=== PATIENT | male | born 1960 | race Caucasian/White ===

== ENCOUNTER 2016-08-12 18:37 | Inpatient (IN) | payer OTHER ==
[~2016-08-12] VITALS: Ht 170.2 cm; Wt 78.6 kg
[2016-08-12 18:41] VITALS: BP 156/86; PULSE 74; RESP 20; O2SAT 99
--- NOTE | 2016-08-12 19:21 | ED.REPORT ---
HPI-Extremity Problem Lower Date of Service Aug 12, 2016 ED Provider: Da Watkins DO A 55 year old male with no pertinent medical history is brought to the ED via EMS due to left ankle pain. The pt was in a hay loft today when he stepped through a board. He experienced immediate pain in his left ankle, and paramedics noted left ankle deformity upon arrival. The pt denies other trauma. He last ate at 15:00 today. Nursing Notes Stated Complaint: FALL W/LEFT ANKLE DEFORMITY Chief Complaint: Multiple Trauma/Fall Nursing Notes Reviewed: Yes Allergies: Coded Allergies: No Known Allergies (Unverified , 08/12/16) General Time Seen by MD: 19:21 Chief Complaint Ankle injury left Hx Obtained From: Patient, EMS Arrived By: Ambulance Onset Occurred: 1 - 4 hours ago Symptom Duration: Since onset Recent Healthcare: No recent doctor visit, No recent hospitalization Similar Sx Previous: No Past Medical History Past Medical History none reported Past Surgical History none reported Smoking History Never Smoker Social History Alcohol Use: Denies alcohol use Drug Use: Denies drug use Other Social History: Good social support, Ambulatory Status Independent Review of Systems Review of Systems Note: left ankle deformity Constitutional: Denies: Fever Musculoskeletal: Reports: Extremity pain, Denies: Back pain, Neck pain Skin: Denies Rash Neurologic: Denies: Headache Complete sys rev & neg: except as marked. Respiratory: Denies: Non-productive cough, Shortness of breath Cardiovascular: Denies: Chest pain GI: Denies: Abdominal pain Physical Exam Initial Vital Signs Vital Signs (First) Date Time Temp Pulse Resp B/P Pulse Ox O2 Delivery O2 Flow Rate FiO2 08/12/16 18:41 36.9 74 20 156/86 99 Room Air Initial VS: Reviewed Lower Extremity / Pelvis / MS: Neurologic intact, Vascular intact Ankle / Foot: Neurologic intact, Vascular intact unstable and deformed left ankle strong pulses sensation intact over entire foot General/Constitutional: Awake, Alert Respiratory / Chest: Atraumatic, Breath sounds NL, Breath sounds = bilat, No respiratory distress Cardiovascular: Heart rate NL, Regular rhythm, Heart sounds NL Skin: Atraumatic, Color NL, No rash, Warm, Dry Neurologic: Oriented X3, Speech NL, No motor deficits, No sensory deficits Head / Eyes: Atraumatic, Normocephalic, PERRL, EOMI ENT: Atraumatic, Airway patent, Mucous membranes moist Neck: Atraumatic, Supple, Full range of motion Abdomen: Atraumatic Back: Atraumatic, Full range of motion Upper Extremity / MS: Atraumatic, Full range of motion Psychiatric: Affect NL, Mood NL Interpretation & Diagnostics Interpretation & Diagnostics: Left Ankle CT: IMPRESSION: Comminuted fractures of the distal tibia and fibula as detailed above Nondisplaced intra-articular fracture of the medial malleolus. Dictated by: Todd Lay M.D. on 08/12/2016 at 20:14 Approved by: Todd Lay M.D. on 08/12/2016 at 20:18 Lab Results Interpretation Result Diagram: 08/12/16 1942 08/12/16 1942 Test 08/12/16 19:42 White Blood Count 17.2th/mm3 (3.8-10.1) Red Blood Count 5.01mil/mm3 (4.40-5.80) Hemoglobin 15.2g/dL (13.8-17.2) Hematocrit 43.3% (41.0-50.0) Mean Corpuscular Volume 86.4fL (81-100) Mean Corpuscular Hemoglobin 30.3pg (27.0-35.0) Mean Corpuscular Hemoglobin Concent 35.1% (32.0-37.0) Red Cell Distribution Width 12.5% (12.3-15.4) Platelet Count 282bil/L (150-400) Neutrophils (%) (Auto) 85.6% (40-74) Lymphocytes (%) (Auto) 6.2% (14-46) Monocytes (%) (Auto) 6.8% (4-12) Eosinophils (%) (Auto) 0.6% (0-5) Basophils (%) (Auto) 0.2% (0-3) Prothrombin Time 10.1sec (8.1-12.5) Prothromb Time International Ratio 0.95ratio Activated Partial Thromboplast Time 24.3sec (22.8-33.0) Sodium Level 140mEq/L (134-144) Potassium Level 4.4mEq/L (3.5-5.2) Chloride Level 104mEq/L (97-108) Carbon Dioxide Level 21mmol/L (18-29) Blood Urea Nitrogen 19mg/dL (6-24) Creatinine 0.91mg/dL (0.76-1.27) Estimat Glomerular Filtration Rate 93mL/min (>59) Glucose Level 118mg/dL (60-99) Calcium Level 8.6mg/dL (8.5-10.1) Total Bilirubin 0.3mg/dL (0.0-1.2) Aspartate Amino Transf (AST/SGOT) 20U/L (0-50) Alanine Aminotransferase (ALT/SGPT) 15U/L (0-44) Alkaline Phosphatase 51U/L (25-150) Total Protein 6.5g/dL (6.4-8.4) Albumin 4.0g/dL (3.4-5.0) Hold Fisher Top Tube Received (Received) Pulse Oximetry Interpretation Pulse Oximetry Interpretation: 99% on room air Pulse Oximetry: Pulse Ox normal X-Ray Interpretation Xray Interpretation: IMPRESSION: Intra-articular comminuted fracture of the distal tibia with intra-articular extension. Minimal articular surface incongruity. Overriding, displaced distal fibular diaphyseal fracture Dictated by: Todd Lay M.D. on 08/12/2016 at 19:47 Approved by: Todd Lay M.D. on 08/12/2016 at 19:49 X-Ray Ordered: Ankle left Interpretation / Wet Read by: Interpret - Radiologist Procedures Splint Application - Fx Mgt Time: 19:37 Procedure Performed by: ED physician, Pile Driving Superintendent Precise Anatomic Location: left ankle Type of Immobilization: Ortho-glass, Posterior short leg Definitive Fracture Care: Pain control, Performed by pa Post-Procedure / Complications: Cap refill normal, Post splint vascular nl, Post splint neuro nl, Condition improved, Tolerated procedure well, Patient stable Re-Eval/Medical Decision Source of Hx: Old records Re-Evaluation/Progress #1: Time of Eval: 19:28 Re-Evaluation/Progress Note: Pt rechecked, who is stable. He is informed of his radiology results and orthopedic consult. The plan for possible admission is discussed. Re-Evaluation/Progress #2: Time of Eval: 19:37 Re-Evaluation/Progress Note: Pt rechecked and splint is applied. Pt is informed of the plan for admission. The pt understands and agrees with the plan. All questions are addressed at this time. Consultation #1: Referral / Consult Name: Alek Dyson DO Consulted With: Orthopedic Call Returned at: 19:27 Real Estate Site Analyst: Will see patient, Agrees with eval, Agrees with plan Note: Spoke with Dr. Dyson, orthopedic surgeon, regarding pt's case. Dr. Dyson agrees to review pt's radiology. Consultation #2: Referral / Consult Name: Alek Dyson DO Consulted With: Orthopedic Call Returned at: 19:32 Note: Spoke with Dr. Dyson, who recommends admission and will see the pt tomorrow. Consultation #3: Referral / Consult Name: Hector Poole MD Consulted With: Hospitalist Call Returned at: 20:20 Real Estate Site Analyst: Agrees with eval, Agrees with plan, Accepts admit Note: Spoke with Dr. Poole, hospitalist, regarding pt's case. Dr. Poole agrees with the evaluation and agrees to admit the pt. Counseled Regarding: Diagnosis, Lab results, Need for admission Discharge & Departure Impression: Primary Impression: Closed left ankle fracture Encounter type: initial encounter Qualified Code: S82.892A - Other fracture of left lower leg, initial encounter for closed fracture Additional Impressions: Comminuted fracture Acute fracture Disposition: ADMITTED TO HOSPITAL Discharge Condition All VS Reviewed: Yes Condition: Stable Referrals: Jeff Bustos PA-C (PCP) Karlos Attestation Portions of this note were transcribed by Mildred Salguero. I, Dr. Watkins personally performed the history, physical exam and medical decision-making; I reviewed and confirmed the accuracy of the information in the transcribed note. Signed by: Karlos Nguyen, 08/12/2016 and 2328. copies to: Jeff Bustos PA-C, Todd P DO Aug 12, 2016 19:21 MILDRED SALGUERO Aug 12, 2016 19:23
[2016-08-12] MEDS: Ondansetron 2 mg/mL 2 mL Inj IVPUSH PRN (19:30)
[2016-08-12] MEDS: HYDROmorphone 0.5 mg/0.5 mL iSecure Syringe IVPUSH PRN ×4 (19:32→22:14)
--- NOTE | 2016-08-12 19:50 | DRSVH ---
PROCEDURE: X-RAY LEFT ANKLE, MINIMUM THREE VIEWS ([id number]) INDICATIONS: deformed TECHNIQUE: 3 views of the ankle were acquired. COMPARISON: None. FINDINGS: Bones: Moderately displaced distal tibial diaphyseal fracture with large butterfly fragment. There is medial displacement of the distal tibial fragment. Fracture line appears to extend to the medial mal leolus, with intra-articular extension to the tibiotalar joint where there is minimal articular surfa ce incongruity. Severely displaced and overriding distal fibular fracture, with medial displacement of the distal fra gment measuring one shaft width. Multiple chronic ossicles adjacent to the tip of the medial malleolu s Soft tissues: No tibiotalar joint effusion. Achilles tendon appears normal. IMPRESSION: Intra-articular comminuted fracture of the distal tibia with intra-articular extension. M inimal articular surface incongruity. Overriding, displaced distal fibular diaphyseal fracture Dictated by: Todd Lay M.D. on 08/12/2016 at 19:47 Approved by: Todd Lay M.D. on 08/12/2016 at 19:49
[2016-08-12 19:52] LABS: BASOPHILS % (AUTO) 0.2 % (0-3); EOSINOPHILS % (AUTO) 0.6 % (0-5); MONOCYTES % (AUTO) 6.8 % (4-12); Mean Corpuscular Hemoglobin 30.3 pg (27.0-35.0); Mean Corpuscular Volume 86.4 fL (81-100); NEUTROPHILS % (AUTO) 85.6 % (40-74); Platelet Count 282 bil/L (150-400)
--- NOTE | 2016-08-12 20:19 | DRSVH ---
PROCEDURE: CT ANKLE LEFT W/O CONTRAST ([id number]) INDICATIONS: trauma TECHNIQUE: Noncontrast 3-mm axial sections acquired from the distal tibial shaft to the talar dome, with coronal and sagittal reformats. For radiation dose reduction, the following was used: automated exposure c ontrol, adjustment of mA and/or kV according to patient size. COMPARISON: None. FINDINGS: Image quality: Excellent. Bones: Comminuted fracture of the distal tibial diaphysis with large butterfly fragment is seen. Ther e is medial displacement of the distal tibial fragment. There is also a stellate nondisplaced hairlin e fracture through the medial malleolus, with extension into the tibiotalar joint, in multiple locati ons, although minimal articular surface incongruity. Chronic appearing subcentimeter multiple ossicle s adjacent to the tip of the medial malleolus presumably from prior trauma. Overriding, impacted comm inuted distal fibular fracture with medial displacement of the distal fragment. The talar dome and re maining visualized hindfoot appear grossly intact. Soft tissues: Diffuse subcutaneous swelling and edema. The visualized tendons appear grossly intact IMPRESSION: Comminuted fractures of the distal tibia and fibula as detailed above Nondisplaced intra-articular fracture of the medial malleolus. Dictated by: Todd Lay M.D. on 08/12/2016 at 20:14 Approved by: Todd Lay M.D. on 08/12/2016 at 20:18
[2016-08-12] MEDS ORDERED: Alum-Mag Hydrox-Simeth 30 mL Suspension PO PRN (20:25)
[2016-08-12] MEDS ORDERED: Ondansetron 2 mg/mL 2 mL Inj IVPUSH PRN (20:25)
[2016-08-12] MEDS ORDERED: Polyethylene Glycol (PEG) 17 Gm Powder PO PRN (20:25)
[2016-08-12 20:42] LABS: INR 0.95 ratio
[2016-08-12 21:27] VITALS: BP 150/70; PULSE 74; RESP 16; O2SAT 96
--- NOTE | 2016-08-12 22:02 | PCM.HPMED ---
Subjective Date of Service Aug 12, 2016 Primary Provider: Admitting Physician: Hector Poole MD Primary Care Physician: Jeff Bustos PA-C Attending Physician: Hector Poole MD Chief Complaint: Left ankle pain History of Present Illness: Patient is a 55 y.o. M with past medical history of neurofibromatosis, no PCP for years. 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 Patient stated he felt immediate sharp pain rated 10/10 in his left ankle, we was unable to bear weight but crawled to his house to call for help. Patient noted that he took his boot off and saw that his ankle was deviated to the outside. Patient denies trauma to his head or other body part, denies loss of consciousness, numbness and tingling of left lower extremity and left foot. Patient denies chest pain, fever, chills, nausea, vomiting, diarrhea, headache, change in vision. In ED X- Ray showed commuted and displace fracture of left tibia and fibula, fracture was reduced and splinted in ED. Review of Systems: Comprehensive review of systems conducted and was negative except for the pertinent positives listed above. Allergies Coded Allergies: No Known Allergies (Unverified , 08/12/16) Home Medications None reported PMH Neurofibromatosis . Surgical History None reported Family History HTN DM neurofibromatosis Social History Hx Alcohol Use: No Hx Substance Use: No Hx Tobacco Use: No Smoking Status: Never Smoker Exam Vital Signs Vital Sign - Last Date Time Temp Pulse Resp B/P Pulse Ox O2 Delivery O2 Flow Rate FiO2 08/12/16 21:27 36.8 74 16 150/70 96 Room Air Exam General: Alert, Oriented X3, Cooperative, No Acute Distress Head: Normocephalic, atraumatic. External ears normal. Multiple neurofibromas of face and nect Eyes: PERRLA, EOMI. Anicteric sclerae. Mouth: Mouth Normal, Mucous Membranes Moist/[place] Neck: Neck supple with full range of motion. Chest & Lungs: Clear to auscultation bilaterally with no crackles, wheezes, or rhonchi. Cardiovascular: Regular Rate/Rhythm, Normal S1, Normal S2, No Murmurs/Rubs/ Gallops Abdomen: Non-tender, Non-distended, No masses, Normoactive bowel tones, Soft Musculoskeletal: Normal Range of Motion of arms bilaterally and right lower extremity, left lower extremity splinted in short leg splint Extremities: No cyanosis/clubbing/edema bilaterally/ Left lower extremity in short leg splint, neurovasularly intact Neurological: Grossly Neurologically Intact, Cranial Nerves 2-12 Intact, Normal Speech, Strength Normal 4/4, Sensation Intact, Cerebellar Function nl Finger-Nose Lab and Diagnostics Result Diagram: 08/12/16194108/12/161941 X-Rays, CTs and MRIs Left Ankle X-Ray IMPRESSION: Intra-articular comminuted fracture of the distal tibia with intra- articular extension. Minimal articular surface incongruity. Overriding, displaced distal fibular diaphyseal fracture Dictated by: Todd Lay M.D. on 08/12/2016 at 19:47 Approved by: Todd Lay M.D. on 08/12/2016 at 19:[address] IMPRESSION: Comminuted fractures of the distal tibia and fibula as detailed above Nondisplaced intra-articular fracture of the medial malleolus. Dictated by: Todd Lay M.D. on 08/12/2016 at 20:14 Approved by: Todd Lay M.D. on 08/12/2016 at 20:18 Assessment & Plan Patient is a 55 y.o. M with past medical history of neurofibromatosis, no PCP for years. Admitted for treatment of left distal commuted closed, displaced fracture of tibia and fibula. 1. left distal commuted closed, displaced fracture of tibia and fibula - Xray and CT of left ankle confirm presence of fracture of tibia and fibula - Short leg splint in place, LLE neurovascularly intact - NPO at midnight - IV NS @ 100 mls/hr - Hydrocodone 5-325 mg 1-2 tab PO Q4 for pain - Toradol 30 mg IV push Q8 PRN pain - Surgical consult obtained in ED, orthopedics will see patient tomorrow. - Check AM CBC, CMP, EKG prior to surgery Chronic conditions Neurofibromatosis, presumed stable CODE STATUS FULL CODE DVT prophylacix: SUB Q Heparin Patient is admitted under observation status with expected length of stay less than 2 midnights due to severity of presenting symptoms, risk of adverse event, and complexity of treatment plan. Pain Evaluation: Adequate Pain Control Resuscitation Status: CPR: Attempt Resuscitation Attending Statement The patient was seen and examined together with Dr. Goyal on 08/12 and I agree with the history, exam and plan as outlined in the note above. JOEL GOYAL DO Aug 12, 2016 22:02 Hector Poole MD Aug 13, 2016 00:18
[2016-08-12 22:05] VITALS: BP 148/84; PULSE 71; RESP 20; O2SAT 97
[2016-08-13] VITALS (14 sets, daily range): BP systolic 146–177; BP diastolic 71–112; PULSE 63–118; RESP 15–20; O2SAT 93–98
[2016-08-13] MEDS ORDERED: Heparin 5,000 Unit/mL Inj SUBQ SCH (00:30)
[2016-08-13] MEDS: HYDROcodone-APAP 5-325 mg Tablet PO PRN ×4 (01:08→13:46)
--- NOTE | 2016-08-13 05:56 | NUR ---
NOC/Admit PT admitted from ED around 2300 s/p L ankle fracture. He reportedly stepped in his barn and his foot went through some elias. L ankle has splint intact. +CMS to toes. Popliteal pulse noted. LLE kept on pillow. PT receiving pain meds with good relief. He is currently NPO with the likelihood of OR today. Admission complete. Voiding per urinal.
[2016-08-13 06:12] LABS: BASOPHILS % (AUTO) 0.3 % (0-3); EOSINOPHILS % (AUTO) 0.6 % (0-5); MONOCYTES % (AUTO) 10.2 % (4-12); Mean Corpuscular Hemoglobin 30.8 pg (27.0-35.0); Mean Corpuscular Volume 87.6 fL (81-100); NEUTROPHILS % (AUTO) 78.1 % (40-74); Platelet Count 241 bil/L (150-400)
--- NOTE | 2016-08-13 06:24 | PCM.PNMED ---
Subjective Date of Service Aug 13, 2016 Subjective Patient is seen and examined. He says that he has not gone to his PCP in a while. He denies any prior history of hypertension. He is curious if we could add a lipid panel labs. He states his pain is under good control. He denies history of diabetes. He does not take home medications. 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 States he had a lot of pain following the incident. He denies overnight fevers chills, recent weight loss weight gain. He denies GI symptoms. He denies numbness and tingling in the left lower extremity Exam Vital Signs Vital Sign - Last Date Time Temp Pulse Resp B/P Pulse Ox O2 Delivery O2 Flow Rate FiO2 08/13/16 05:48 65 08/13/16 05:47 36.5 18 152/81 97 Room Air Intake and Output 08/12/16 08/12/16 08/13/16 Cumulative From/Thru 15:00 23:00 07:00 08/12/16 18:41 - 08/13/16 06:04 Intake Total 0 ml 0 ml Output Total 725 ml 725 ml Balance -725 ml -725 ml Intake Oral 0 ml 0 ml Output Urine Total 725 ml 725 ml # Bowel Movements 0 0 Exam Gen.: No acute distress distress. Short stager HEENT: Several large sized papule-like skin tags are present throughout the body. Neck: Negative for JVD, trachea central Heart: Regular rate and rhythm no S3-S4 sounds Lungs: Clear to auscultation no crackles or wheezes Abdomen: Normal bowel sounds are present. Nontender nondistended Extremities: He is able to move his toes. Neuro: Negative for altered sensation, no focal deficits IVs and Medications IV Fluids D5 half normal saline 100 mL per hour Medications Reviewed: Medications were reviewed in detail Lab and Diagnostics Result Diagram: 08/13/1654408/12/161941 X-Rays, CTs and MRIs Left Ankle X-Ray IMPRESSION: Intra-articular comminuted fracture of the distal tibia with intra- articular extension. Minimal articular surface incongruity. Overriding, displaced distal fibular diaphyseal fracture Dictated by: Todd Lay M.D. on 08/12/2016 at 19:47 Approved by: Todd Lay M.D. on 08/12/2016 at 19:[address] IMPRESSION: Comminuted fractures of the distal tibia and fibula as detailed above Nondisplaced intra-articular fracture of the medial malleolus. Dictated by: Todd Lay M.D. on 08/12/2016 at 20:14 Approved by: Todd Lay M.D. on 08/12/2016 at 20:18 12-lead ECG Premature atrial complexes normal sinus rhythm Assessment & Plan Patient is a 55 y.o. M with past medical history of neurofibromatosis, no PCP for years. Admitted for treatment of left distal commuted closed, displaced fracture of tibia and fibula. 1. left distal commuted closed, displaced fracture of tibia and fibula - Xray and CT of left ankle confirm presence of fracture of tibia and fibula - Short leg splint in place, LLE neurovascularly intact - NPO at midnight - IV NS @ 100 mls/hr: Includes a changed to D5 half-normal saline - Hydrocodone 5-325 mg 1-2 tab PO Q4 for pain - Toradol 30 mg IV push Q8 PRN pain - Surgical consult obtained in ED, orthopedics will take the patient to OR today - Check AM CBC, CMP, EKG prior to surgery: These have been done and labs and EKG are verified Chronic conditions Neurofibromatosis, presumed stable CODE STATUS FULL CODE DVT prophylacix: SUB Q Heparin: Heparin is held prior to surgery Patient is admitted under inpatient status with expected length of stay > 2 midnights due to severity of presenting symptoms, risk of adverse event, and complexity of treatment plan. Pain Evaluation: Adequate Pain Control VTE Mechanical Devices: Intermittant Pneumatic CD Resuscitation Status: CPR: Attempt Resuscitation Nichole Prince DO Aug 13, 2016 06:24
[2016-08-13] MEDS ORDERED: Influenza (Adult) Vaccine 0.5 mL Syringe IM ONE (08:30)
[2016-08-13] MEDS ORDERED: Phenylephrine/NS 100 mCg/mL 10 mL Syringe IVPUSH ONE (09:39)
[2016-08-13] MEDS ORDERED: fentaNYL-PF 50 mCg/mL 2 mL Inj ONE ×2 (09:39→10:54)
[2016-08-13] MEDS ORDERED: EPHEDrine/NS 5 mg/mL 5 mL Syringe ONE (09:39)
[2016-08-13] MEDS ORDERED: Ondansetron 2 mg/mL 2 mL Inj ONE (09:39)
[2016-08-13] MEDS ORDERED: Dexamethasone 4 mg/mL Inj ONE (09:39)
[2016-08-13] MEDS ORDERED: Rocuronium 10 mg/mL 5 mL Inj ONE (09:39)
[2016-08-13] MEDS ORDERED: Propofol 10,000 mCg/mL 20 mL Inj ONE (09:39)
[2016-08-13] MEDS: Dextrose 5% 0.45% NaCl 1,000 ML IV SCH ×2 (12:11→21:05)
--- NOTE | 2016-08-13 14:13 | PCM.HPANE ---
Patient Data Date of Service: Aug 13, 2016 Surgeon Admitting Provider:Hector Poole MD Attending Provider:Hector Poole MD Primary Care Physician:Jeff Bustos PA-C Other Provider:Ashlyn Caban Anesthesia Reason for Visit Left Ankle Fracture LEFT ANKLE FRACTURE Ht/WT & BMI Height (Feet): 5 Height (Inches): 7.00 Weight (Kilograms): 78.600 Body Mass Index 27.20 Allergies Coded Allergies: No Known Allergies (Unverified , 08/12/16) Past Anesthesia History Anesthesia History: Denies:: Anesthesia Reactions Diabetes History Hx Diabetes?: No MRSA MRSA: No Medications No Active Prescriptions or Reported Meds History Hx of Heart Problems?: No Cardiovascular History: Denies:: Congestive Heart Failure Hypertension Hx of Respiratory Problem?: No Respiratory History: Denies:: Tuberculosis Other Resp Pertinent History: Hx lung nodules Hx Neurologic Problems?: No Hx of GI Problems?: No Hx of Problems?: No Male Hx: Denies:: Prostate Problems Scrotal Mass Testicular Surgery Musculoskeletal History: Positive for:: Musculoskeletal Trauma (Fall prior to admit with fx) Denies:: Back Injury Joint Replacement Hx of Psycho/Social Problems?: No Hx Surgeries?: Yes (skin graft on finger) Hx Any Other Health Problems?: Yes History Blood Transfusions: Positive for:: Accept Blood Products? Denies:: Blood Transfusions Hx Diabetes: No Hx Alcohol Use: NoHx Substance Use: No Smoking Status: Never Smoker Stop/Bang Treated for Sleep Apnea?: No Do You Have a CPAP Machine?: No S-Snoring: Do You Snore Loudly: No T-Tired: feel tired, fatigued: No O-Obsered: Observed not breath: No P-Blood Pressure: treated: No B- Body Mass Index > 35 kg/m2: No A- Age over 50: Yes N- Neck Large Circumference: No G- Gender Male: Yes MARISELA Total Score: 1 MARISELA Risk Assessment: Low Risk, <3 Yes Risk Assessment Category Category 1A: Patient has history of documented sleep apnea, and HAS NOT received any narcotic, sedative or anesthesia administration during this stay. Category 1B: Patient has history of documented sleep apnea, and HAS received any narcotic , sedative or anesthesia administration during this stay Category 2: Patient has SUSPECTED Obstructive Sleep Apnea, and HAS received any narcotic , sedative or anesthesia administration during this stay. Category 3: Patient has SUSPECTED Obstructive Sleep Apnea and HAS NOT received narcotic, sedative or anesthesia administration during this stay. Category 4: Outpatient in Procedural Areas with known sleep apnea or who screen positive for High Risk via the STOP/BANG questionnaire. Exam Exam Vital Signs Vital Signs Date Time Temp Pulse Resp B/P Pulse Ox O2 Delivery O2 Flow Rate FiO2 08/13/16 13:49 36.8 64 18 146/80 95 Room Air 08/13/16 10:33 36.7 70 18 150/78 97 Room Air 08/13/16 08:00 63 General Appearance: Alert, Oriented X3, Cooperative, No Acute Distress HEENT/AIRWAY: MP 2 Lungs: Clear to Auscultation, Normal Air Movement Heart: Exam Unremarkable, Regular Rate/Rhythm, No Murmurs/Rubs/Gallops Meds/Labs/Diagnostics Admission Meds Current Medications Heparin Sodium (Porcine) (Heparin Inj) 5,000 unit Q8 SUBQ Last administered on 08/13/16 01:07; Start 08/13/16 at 00:30; Stop 08/13/16 at 06:24; Status DC Influenza Virus Vaccine 0.5 ml 0.5 ml ONCE ONCE IM Last administered on 09:08; Start 08/13/16 at 08:30; Stop 08/13/16 at 08:31; Status DC Dextrose/Sodium Chloride (D5 1/2 Normal Saline) 1,000 ml @ 100 mls/hr Q10H IV Last administered on 08/13/16 12:11; Start 08/13/16 at 11:05 Labs Test 08/12/16 19:42 08/13/16 05:45 Prothrombin Time 10.1sec (8.1-12.5) Prothromb Time International Ratio 0.95ratio Activated Partial Thromboplast Time 24.3sec (22.8-33.0) Hold Fisher Top Tube Received (Received) White Blood Count 11.6th/mm3 (3.8-10.1) Red Blood Count 4.83mil/mm3 (4.40-5.80) Hemoglobin 14.9g/dL (13.8-17.2) Hematocrit 42.3% (41.0-50.0) Mean Corpuscular Volume 87.6fL (81-100) Mean Corpuscular Hemoglobin 30.8pg (27.0-35.0) Mean Corpuscular Hemoglobin Concent 35.2% (32.0-37.0) Red Cell Distribution Width 12.7% (12.3-15.4) Platelet Count 241bil/L (150-400) Neutrophils (%) (Auto) 78.1% (40-74) Lymphocytes (%) (Auto) 10.1% (14-46) Monocytes (%) (Auto) 10.2% (4-12) Eosinophils (%) (Auto) 0.6% (0-5) Basophils (%) (Auto) 0.3% (0-3) Sodium Level 143mEq/L (134-144) Potassium Level 4.3mEq/L (3.5-5.2) Chloride Level 109mEq/L (97-108) Carbon Dioxide Level 22mmol/L (18-29) Blood Urea Nitrogen 20mg/dL (6-24) Creatinine 0.79mg/dL (0.76-1.27) Estimat Glomerular Filtration Rate 109mL/min (>59) Glucose Level 104mg/dL (60-99) Calcium Level 8.5mg/dL (8.5-10.1) Total Bilirubin 0.5mg/dL (0.0-1.2) Aspartate Amino Transf (AST/SGOT) 17U/L (0-50) Alanine Aminotransferase (ALT/SGPT) 15U/L (0-44) Alkaline Phosphatase 53U/L (25-150) Total Protein 6.0g/dL (6.4-8.4) Albumin 4.2g/dL (3.4-5.0) Triglycerides Level 170mg/dL (0-149) Cholesterol Level 264mg/dL (100-199) LDL Cholesterol, Calculated 186.000mg/dL (0-99) VLDL Cholesterol 34.000mg/dL HDL Cholesterol 44mg/dL (>39) Cholesterol/HDL Ratio 6.00 (0.0-4.4) Plan Impression Patient chart reviewed, patient interviewed and anesthestic plan with risks, benefits, and alternatives discussed, and informed consent obtained. NPO Status: >8h ASA Physical Status: ASA2 Mod Systemic Disease Anesthetic Plan: GA Bene/Risks/Altern/Consents: Yes HP Complete Prior to Induction: Yes Stephan Munguia MD Aug 13, 2016 14:13 Yoni Pelaez MD Aug 13, 2016 18:01
--- NOTE | 2016-08-13 15:33 | NUR ---
Social Work- Brief Note Data: EMR reviewed. Pt is a 55 year old male admitted 08/12/16 for left ankle fracture per H&P. Pt's insurance is [employer]. Pt's listed PCP is Jeff Bustos, pt states he has no PCP. SW met with pt at bedside regarding discharge plan, SW role explained. Pt alert and oriented x3. Pt to go to OR later today. Pt resides in [facility] [place]. Pt has no DPOA, paperwork provided. Pt to discharge home with family to transport via POV. SW left phone number and plan on whiteboard. No anticipated discharge needs. SW will continue to follow. Assessment: [place]. Plan: Pt to discharge home with family to transport via POV. No anticipated discharge needs, SW will continue to follow. TERRI Duffy
[2016-08-13] MEDS: HYDROmorphone 0.5 mg/0.5 mL iSecure Syringe IVPUSH PRN (17:26)
--- NOTE | 2016-08-13 17:53 | NUR ---
To OR PT taken to OR at 1745. Medicated with 0.5mg IV Dilaudid prior to transport for increasing pain 12/31. Denies nausea. Family at bedside. [place] ordered from kitchen for pt to have after surgery. Consent signed and in chart.
[2016-08-13] MEDS ORDERED: CeFAZolin Inj 2 gm / 50mL D5W IV ONE (18:03)
[2016-08-13] MEDS ORDERED: CeFAZolin Inj 1 GM in IV Premix 1 EACH IV ONE (18:03)
[2016-08-13] MEDS ORDERED: Lactated Ringer's 500 ML IV PRN (18:52)
[2016-08-13] MEDS ORDERED: Lactated Ringer's 1,000 ML IV SCH (18:52)
[2016-08-13] MEDS ORDERED: HYDROmorphone 1 mg/mL Inj IVPUSH PRN (18:55)
[2016-08-13] MEDS ORDERED: EPHEDrine Sulfate 50 mg/mL Inj IVPUSH PRN (18:55)
[2016-08-13] MEDS ORDERED: Labetalol 5 mg/mL 4 mL Inj IV PRN (18:55)
[2016-08-13] MEDS ORDERED: Ondansetron 2 mg/mL 2 mL Inj IVPUSH PRN ×2 (18:55→21:45)
[2016-08-13] MEDS ORDERED: hydrALAZINE 20 mg/mL Inj IVPUSH PRN (18:55)
[2016-08-13] MEDS ORDERED: Atropine 0.4 mg/mL Inj IVPUSH PRN (18:55)
[2016-08-13] MEDS ORDERED: Phenylephrine 10,000 mCg/mL Inj IVPUSH PRN (18:55)
[2016-08-13] MEDS ORDERED: MetoCLOpramide 5 mg/mL 2 mL Inj IVPUSH PRN (18:55)
[2016-08-13] MEDS ORDERED: fentaNYL-PF 50 mCg/mL 2 mL Inj IVPUSH PRN (18:55)
[2016-08-13] MEDS ORDERED: Ropivacaine-PF 0.5% 30 mL Inj INFILTRATE ONE (19:07)
[2016-08-13] MEDS: Ondansetron 2 mg/mL 2 mL Inj IVPUSH PRN (21:11)
[2016-08-13] MEDS ORDERED: Lactated Ringer's 1,000 ML IV ONE (21:27)
[2016-08-13] MEDS ORDERED: HYDROcodone-APAP 5-325 mg Tablet PO PRN (21:45)
[2016-08-13] MEDS ORDERED: hydrOXYzine Pamoate 25 mg Capsule PO PRN (21:45)
[2016-08-13] MEDS ORDERED: diphenhydrAMINE 25 mg Capsule PO PRN (21:45)
[2016-08-13] MEDS ORDERED: HYDROmorphone 2 mg/mL Inj IVPUSH PRN (21:45)
[2016-08-13] MEDS ORDERED: Magnesium Hydroxide 10 mL Oral Concentration PO PRN (21:45)
[2016-08-13] MEDS ORDERED: Polyethylene Glycol (PEG) 17 Gm Powder PO PRN (21:45)
[2016-08-13] MEDS ORDERED: Sodium Biphos-Phos 133 mL Enema RECTAL PRN (21:45)
--- NOTE | 2016-08-13 22:41 | PCM.ANEP1 ---
Post Anesthesia Phase 1 PACU Phase 1 Assessment Date of Service: Aug 13, 2016 Vital Signs Vital Signs Date Time Temp Pulse Resp B/P Pulse Ox O2 Delivery O2 Flow Rate FiO2 08/13/16 22:25 91 15 155/94 95 Nasal Cannula 2 08/13/16 22:10 118 15 168/86 96 Nasal Cannula 2 08/13/16 21:55 95 15 169/112 95 Nasal Cannula 2 08/13/16 21:50 100 16 154/83 94 Nasal Cannula 2 08/13/16 21:44 36.9 102 16 160/98 96 Room Air Anesthetic Administered: GA Level of Alertness: Awake, talking SEGURA's with Equal Strength: Yes Pain: No Pain Scale Score: 8 Nausea or Vomiting: No Lungs: Clear to Auscultation, Normal Air Movement Dermatome Level: Full Sensation Stephan Munguia MD Aug 13, 2016 22:41
--- NOTE | 2016-08-13 22:41 | PCM.ANEP2 ---
Post Anesthesia Evaluation ASA/CMS Post Anesthesia VS in Patient's Normal Range?: Yes Resp Stable; Airway Patent?: Yes CV Function & Hydration Stable: Yes Mental Status Recovered?: Yes Pain control Satisfactory?: Yes N/V Control Satisfactory?: Yes Stephan Munguia MD Aug 13, 2016 22:41
[2016-08-13] MEDS: 0.9% Sodium Chloride 1,000 ML IV SCH (23:07)
[2016-08-14] MEDS: Sodium Chloride LOK Flush 10 mL Syringe IV SCH ×2 (00:30→08:16)
[2016-08-14 01:13] VITALS: BP 162/84; PULSE 88; RESP 16; O2SAT 92
--- NOTE | 2016-08-14 01:15 | NUR ---
RETURN FROM OR PT RETURNED TO UNIT FROM OR AT 2250. VERY DROWSY BUT EASY TO ROUSE. STATES HE HAS NO PAIN. A/O X2, AWARE OF THE PROCEDURE. SABRINA WRAP DRESSING TO MELISSA BROWN. PT ABLE TO WIGGLE TOES, FLEX AND EXTEND LEG.
[2016-08-14] MEDS: CeFAZolin Inj 2,000 MG in Dextrose 5% 50 ML IV SCH ×2 (02:51→09:49)
[2016-08-14 05:16] VITALS: BP 147/85; PULSE 86; RESP 18; O2SAT 95
[2016-08-14 06:45] LABS: BASOPHILS % (AUTO) 0.1 % (0-3); EOSINOPHILS % (AUTO) 0 % (0-5); MONOCYTES % (AUTO) 7.8 % (4-12); Mean Corpuscular Hemoglobin 30.4 pg (27.0-35.0); Mean Corpuscular Volume 88.8 fL (81-100); NEUTROPHILS % (AUTO) 85.3 % (40-74); Platelet Count 234 bil/L (150-400)
[2016-08-14] MEDS: Dextrose 5% 0.45% NaCl 1,000 ML IV SCH (07:05)
[2016-08-14 08:00] VITALS: PULSE 88
[2016-08-14] MEDS ORDERED: Senna-Docusate 8.6-50 mg Tablet PO SCH (08:30)
--- NOTE | 2016-08-14 08:49 | DRSVH ---
PROCEDURE: X-RAY LEFT TIBIA/FIBULA, TWO VIEWS ([id number]) INDICATIONS: post op left tibia ORIF TECHNIQUE: 2 views of the tibia and fibula were acquired. COMPARISON: [facility], CT, CT ANKLE LT WO CON, 08/12/2016, 19:52. [facility] l, CR, XR ANKLE 3VW LT, 08/12/2016, 18:45. FINDINGS: Bones: Improved alignment status post open reduction internal fixation of complex trimalleolar left a nkle fracture. Fixation plates and associated screws in expected position. Surgical go present . Soft tissues: No suspicious soft tissue calcifications or masses. IMPRESSION: Improved alignment status post ORIF. Dictated by: Ced Carlisle RRA Interpreted: Gianna Palm MD on 08/14/2016 at 8:38 Transcribed by: BOZENA on 08/14/2016 at 8:49 Approved by: Gianna Palm MD, PhD on 08/14/2016 at 17:02
[2016-08-14] MEDS: 0.9% Sodium Chloride 1,000 ML IV SCH (09:49)
[2016-08-14 10:02] VITALS: BP 139/80; PULSE 91; RESP 18; O2SAT 97
--- NOTE | 2016-08-14 10:42 | NUR ---
Evaluation completed. Please go to "Notes" then click on "Assessments and Notes" (bottom left corner of screen). Then select appropriate discipline tab on top of screen.
--- NOTE | 2016-08-14 13:57 | CONS ---
[address] [address] CONSULTATION REPORT PATIENT: STELLA REBOLLAR : 1960 MR#: [id number] ADMIT: 08/12/2016 JOB ID: [id number] DATE OF SERVICE: 08/13/2016 ORTHOPEDIC CONSULTATION: CHIEF COMPLAINT: Left leg pain. HISTORY OF PRESENT ILLNESS: This is a 55-year-old male that presents with a less than 1-day history of left lower leg pain. 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 He immediately had significant pain as well as on obvious deformity. He was unable to further ambulate or place weight onto the left lower extremity. He was transported by ambulance to [facility] where x-rays were obtained demonstrating a comminuted tibial shaft and fibular fracture. He was placed into a splint at that time after just gross manipulation by the emergency department staff and admitted. He has been comfortable with the immobilization. He has intact sensation with only mild paresthesias to his toes. His pain has been well controlled with the pain medications given on the floor. 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 PAST SURGICAL HISTORY: Negative. FAMILY HISTORY: Noncontributory. SOCIAL HISTORY: The patient denies any tobacco, alcohol, illicit drug use. MEDICATIONS: None. ALLERGIES: No known drug allergies. REVIEW OF SYSTEMS: The patient denies any fevers, sweats, chills, chest pain, shortness of breath, nausea, vomiting, diarrhea. Complains mainly of left lower leg pain as described in the history of present illness. PHYSICAL EXAMINATION: General: The patient is alert, oriented, in no apparent distress. HEENT: Normocephalic, atraumatic. Extraocular movements intact. Multiple neurofibromas throughout the face and neck. Lungs: No audible wheezes. No overt signs of respiratory distress. Neuro: Cranial nerves 2-12 are intact. Extremities: On gross observation of the patient's left lower extremity, there is a short-leg stirrup splint that is intact. The overlying Phillip wrap and soft cast padding has been removed to evaluate the skin. The patient's skin as well as his compartments are soft. He has palpable dorsalis pedis pulse. He is able to mobilize the toes but has very minimal range of motion of the ankle secondary reproduction of pain at the fracture site. He describes very mild paresthesias to the dorsal aspect of the toes. DIAGNOSTIC STUDIES: Three views of the patient's left ankle were obtained demonstrating a comminuted distal tibia diaphyseal fracture with extension into the metaphysis. There also appears to be a medial malleolus fracture and remnants of an old medial malleolus avulsion fracture. The distal fibular shaft fracture also demonstrates some comminution. Both fractures are displaced posteriorly and the tibia also displaced medially. CT of the left ankle and tib-fib was obtained demonstrating intra-articular extension into the plafond with the plafond fracture mainly along the medial and posterior aspect. Both of the fracture lines to the plafond are nondisplaced. IMPRESSION: Left distal tibia fracture with intra-articular extension and left distal fibular shaft fracture. PLAN: The patient was explained in detail his diagnosis. X-rays and CT were also reviewed and discussed with him proceeding with open reduction, internal fixation of the left distal tibia and fibular fracture. He understood the risks include, but not limited to, neurovascular injury, tendon injury, infection, failure of fixation, stiffness, persistent pain, all of which may require further intervention. The patient had all questions answered. Consent was signed and placed in the chart. The patient was left in his current splint. He is explained that he will be splinted postoperatively and will need to maintain nonweightbearing of left lower extremity for a minimum of 10 weeks. At the first two week follow up appointment, we will transition him into a fracture boot. He will likely stay for one more hospitalization day after surgery and the surgery will be later on in the day.
--- NOTE | 2016-08-14 14:21 | NUR ---
Social Work-Readiness for Discharge Data: EMR reviewed. Pt is on day 2 of hospitalization for left ankle fracture per H&P. Pt is not medically stable for discharge, anticipate 1 more day. PT recommending axillary crutches at discharge. SW spoke with pt regarding crutches, provided DME information and referral. Pt's parents to flower picker crutches at [facility]. SW faxed script and facesheet to [facility]. Pt to discharge home with family to transport via POV. No anticipated discharge needs, SW will continue to follow. Assessment: [place] Plan: Pt to obtain axillary crutches prior to discharge. Pt to discharge home with family to transport via POV. No anticipated discharge needs, SW will continue to follow. TERRI Duffy
--- NOTE | 2016-08-14 14:42 | PCM.DIMED ---
Discharge Instructions Date of Service Aug 14, 2016 Dates of Hospitalization Aug 12, 2016 at 20:24 Discharge Diagnosis Discharge Diagnosis L ankle fx Tib/Fib ORIF, Neurofibromatosis Medication Instructions Please take atorvastatin 10 mg QD as recommended to you. Please start hydrochlorothiazide 12.5 mg QD for HTN. Follow up lab qork in 2 weeks prior to PCP follow up. You may follow up at [facility]. Diet Low fat, Low Sodium, Heart Healthy Activity Other (crutches for ambulation, non weight bearing of left LE) Call your provider Fever or Chills, Shortness of breath, Bleeding, Chest pain, Vomitting, Excessive diarrhea, Weakness (unilateral), Other Patient Instructions Please follow up with ortho in 2 weeks Please follow up with PCP in 2 weeks BMP prior to f/u with PCP Nichole Prince DO Aug 14, 2016 14:42
[2016-08-14] MEDS ORDERED: POLY17PO6 PO (14:47)
[2016-08-14] MEDS ORDERED: ATOR10TA66 PO (14:47)
[2016-08-14] MEDS ORDERED: HYDR12.5 PO (14:47)
[2016-08-14] MEDS ORDERED: HYDR-4003 PO (14:47)
--- NOTE | 2016-08-14 15:00 | NUR ---
discharged home with family, family picked up new crutches for [place] earlier, pt eating/drinking, voiding, ambulating with crutches. Several new Rx for Atorvastatin, HCTZ, Miralax, Vicodin, ASA, also phoned in order for Keflex 500mg QID PO x10 days #40 ordered per Mele Vuong, PAC to [facility]. Pt will have f/u appts with Ortho Dr Dyson's office in 2 weeks and TORRES Mcbride for primary care at [facility]
--- NOTE | 2016-08-14 15:06 | PCM.PNORTH ---
Subjective Date of Service: Aug 14, 2016 Visit Information: Reason for Visit Left Ankle Fracture Surgery/Surgery Date Post-Op Day # Date of Admission: Aug 12, 2016 at 20:24 Hospital Day # Subjective Foundation awake and alert and sitting up in bed. No complaints of pain at this time. Briefly discussed discharge today by hospitalist service and hospitalist service as well in the room confirmed this. Postop General: No Complaints, No Shortness of Breath, No Chest Pain Pain Management: PO Objective Exam Objective Alert and oriented 3 and pleasant. Interoperative dressing and splint are clean dry and intact. Toe wiggle and sensation are intact at left lower extremity distally. Calf and thigh are soft and nontender. Mao is absent. Patient has pursued gait training with formal physical therapy and bilateral axillary crutches. Vital Signs and I/O Vital Sign - Last Date Time Temp Pulse Resp B/P Pulse Ox O2 Delivery O2 Flow Rate FiO2 08/14/16 10:02 91 18 139/80 97 Room Air 08/14/16 05:16 36.9 08/13/16 22:40 2 Intake and Output 08/13/16 08/13/16 08/14/16 Cumulative From/Thru 15:00 23:00 07:00 08/12/16 18:41 - 08/14/16 06:03 Intake Total 1949 ml 985 ml 2934 ml Output Total 925 ml 500 ml 2150 ml Balance 1024 ml 485 ml 784 ml Intake Oral 0 ml 540 ml 540 ml IV Total 1949 ml 445 ml 2394 ml Output Urine Total 925 ml 500 ml 2150 ml # Bowel Movements 0 0 Lab & Micro Results Laboratory Tests Test 08/14/16 06:05 White Blood Count 13.1th/mm3 (3.8-10.1) Red Blood Count 4.37mil/mm3 (4.40-5.80) Hemoglobin 13.3g/dL (13.8-17.2) Hematocrit 38.8% (41.0-50.0) Mean Corpuscular Volume 88.8fL (81-100) Mean Corpuscular Hemoglobin 30.4pg (27.0-35.0) Mean Corpuscular Hemoglobin Concent 34.3% (32.0-37.0) Red Cell Distribution Width 12.6% (12.3-15.4) Platelet Count 234bil/L (150-400) Neutrophils (%) (Auto) 85.3% (40-74) Lymphocytes (%) (Auto) 6.4% (14-46) Monocytes (%) (Auto) 7.8% (4-12) Eosinophils (%) (Auto) 0% (0-5) Basophils (%) (Auto) 0.1% (0-3) Sodium Level 140mEq/L (134-144) Potassium Level 4.2mEq/L (3.5-5.2) Chloride Level 104mEq/L (97-108) Carbon Dioxide Level 22mmol/L (18-29) Blood Urea Nitrogen 14mg/dL (6-24) Creatinine 0.73mg/dL (0.76-1.27) Estimat Glomerular Filtration Rate 119mL/min (>59) Glucose Level 128mg/dL (60-99) Calcium Level 8.9mg/dL (8.5-10.1) Total Bilirubin 0.4mg/dL (0.0-1.2) Aspartate Amino Transf (AST/SGOT) 19U/L (0-50) Alanine Aminotransferase (ALT/SGPT) 13U/L (0-44) Alkaline Phosphatase 51U/L (25-150) Total Protein 5.8g/dL (6.4-8.4) Albumin 3.5g/dL (3.4-5.0) Result Diagram: 08/14/1660408/14/16604 General Appearance: Alert, Oriented X3, Cooperative, No Acute Distress Extremities: No Compartment Syndrom Noted, Thigh & Calf Soft/Nontender Postop Sensory Motor: Distal Motor Intact, Movement in Toes, Distal Sensation Intact Activity: Activity per PT, Ambulate with PT (strict nonweightbearing at the left lower extremity using a front-wheeled walker or bilateral axillary crutches.) Catheters: None Assessment & Plan Plan Postop day #1 from left tibia and fibula ORIF performed on 08/13/[address] Alek Dyson. Strict nonweightbearing on the left lower extremity using front-wheeled walker or bilateral axillary crutches. Formal physical therapy for gait training using assistive devices prior to discharge. Maintain by mouth pain control with oxycodone 10 mg or Percocet 10 mg also using Vistaril 25-50 mg every 4-6 hours when necessary. Patient may discharge with Colace 100 mg twice a day for 2 weeks for anticipated constipation secondary to narcotic pain medication. Maintain DVT prophylaxis with ASA 325 mg EC by mouth twice a day 6 weeks postop for DVT prophylaxis per Dr. Alek Dyson. Discharge on Keflex 500 mg 4 times daily [address] Alek Dyson. Ice and elevate the left lower extremity / except for hygiene and meals. Place ice behind the knee for best effect. Patient may shower if left lower extremity splint and dressing is kept clean dry and intact and well covered with plastic bag etc. Patient should use a shower chair and be seated while in the shower. Interoperative splint and dressing should be kept on and intact until seen in office in 2 weeks. Follow-up at [facility] orthopedic clinic in 2 weeks with mid-level provider for wound check and suture removal. Anticipate discharge by hospitalist service on postop day #1 on 08/14/2016 to home with family as caregivers. VTE Prophylaxis: Other (ASA 325 mg EC by mouth twice a day 6 weeks postop for DVT prophylaxis per conversation with Dr. Alek Dyson.) Resuscitation Status: CPR: Attempt Resuscitation Mele Vuong PA-C Aug 14, 2016 15:06
--- NOTE | 2016-08-14 21:01 | PCM.DC.MED ---
Discharge Summary Date of Service Aug 14, 2016 Dates of Hospitalization Date of Hospital Admission Aug 12, 2016 at 20:24 Date of Discharge: Aug 14, 2016 Providers: Admitting Physician: Hector Poole MD Primary Care Physician: Jeff Bustos PA-C Attending Physician: Hector Poole MD Diagnosis at Time of Discharge Diagnosis at Time of Discharge L ankle fx Tib/Fib ORIF, Neurofibromatosis Procedures XRay, CTs & MRIs Left Ankle X-Ray IMPRESSION: Intra-articular comminuted fracture of the distal tibia with intra- articular extension. Minimal articular surface incongruity. Overriding, displaced distal fibular diaphyseal fracture Dictated by: Todd Lay M.D. on 08/12/2016 at 19:47 Approved by: Todd Lay M.D. on 08/12/2016 at 19:[address] IMPRESSION: Comminuted fractures of the distal tibia and fibula as detailed above Nondisplaced intra-articular fracture of the medial malleolus. Dictated by: Todd Lay M.D. on 08/12/2016 at 20:14 Approved by: Todd Lay M.D. on 08/12/2016 at 20:18 ECG 12 Lead Premature atrial complexes normal sinus rhythm Brief History Patient is a 55 y.o. M with past medical history of neurofibromatosis, no PCP for years. 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 Patient stated he felt immediate sharp pain rated 10/10 in his left ankle, we was unable to bear weight but crawled to his house to call for help. Patient noted that he took his boot off and saw that his ankle was deviated to the outside. Patient denies trauma to his head or other body part, denies loss of consciousness, numbness and tingling of left lower extremity and left foot. Patient denies chest pain, fever, chills, nausea, vomiting, diarrhea, headache, change in vision. In ED X- Ray showed commuted and displace fracture of left tibia and fibula, fracture was reduced and splinted in ED. Hospital Course Patient is a 55 y.o. M with past medical history of neurofibromatosis, no PCP for years. Admitted for treatment of left distal commuted closed, displaced fracture of tibia and fibula. 1. left distal commuted closed, displaced fracture of tibia and fibula -- Postop day #1 from left tibia and fibula ORIF performed on 08/13/2016 - Xray and CT of left ankle confirm presence of fracture of tibia and fibula - Patient is stable, he is allowed to with crutches and no weightbearing on left leg. Aspirin 325 mg twice a day per surgery for DVT prophylaxis. -- 2. Hypertension: this is a new diagnosis during this admission. Hydrochlorothiazide 12.5 mg daily as initiated. Follow-up BMP lab prior to follow-up with PCP 3. Hyperlipidemia: Based on patient's lipid panel initiated atorvastatin 10 mg daily based on his ASCVD risk score Chronic conditions Neurofibromatosis, presumed stable Exam Vital Signs (Last) Date Time Temp Pulse Resp B/P Pulse Ox O2 Delivery O2 Flow Rate FiO2 08/14/16 10:02 91 18 139/80 97 Room Air 08/14/16 05:16 36.9 08/13/16 22:40 2 Exam Gen.: No acute distress laying in bed HEENT: NCAT Heart: Regular rate and rhythm lungs CTA no crackles or wheezes abdomen nondistended Extremities: Negative for swelling Neuro: No focal disc deficits, denies altered sensation lower extremities Test 08/12/16 19:42 08/13/16 05:45 08/14/16 06:05 Prothrombin Time 10.1sec (8.1-12.5) Prothromb Time International Ratio 0.95ratio Activated Partial Thromboplast Time 24.3sec (22.8-33.0) Hold Fisher Top Tube Received (Received) Hemoglobin A1c 5.4% (4.8-5.6) Triglycerides Level 170mg/dL (0-149) Cholesterol Level 264mg/dL (100-199) LDL Cholesterol, Calculated 186.000mg/dL (0-99) VLDL Cholesterol 34.000mg/dL HDL Cholesterol 44mg/dL (>39) Cholesterol/HDL Ratio 6.00 (0.0-4.4) White Blood Count 13.1th/mm3 (3.8-10.1) Red Blood Count 4.37mil/mm3 (4.40-5.80) Hemoglobin 13.3g/dL (13.8-17.2) Hematocrit 38.8% (41.0-50.0) Mean Corpuscular Volume 88.8fL (81-100) Mean Corpuscular Hemoglobin 30.4pg (27.0-35.0) Mean Corpuscular Hemoglobin Concent 34.3% (32.0-37.0) Red Cell Distribution Width 12.6% (12.3-15.4) Platelet Count 234bil/L (150-400) Neutrophils (%) (Auto) 85.3% (40-74) Lymphocytes (%) (Auto) 6.4% (14-46) Monocytes (%) (Auto) 7.8% (4-12) Eosinophils (%) (Auto) 0% (0-5) Basophils (%) (Auto) 0.1% (0-3) Sodium Level 140mEq/L (134-144) Potassium Level 4.2mEq/L (3.5-5.2) Chloride Level 104mEq/L (97-108) Carbon Dioxide Level 22mmol/L (18-29) Blood Urea Nitrogen 14mg/dL (6-24) Creatinine 0.73mg/dL (0.76-1.27) Estimat Glomerular Filtration Rate 119mL/min (>59) Glucose Level 128mg/dL (60-99) Calcium Level 8.9mg/dL (8.5-10.1) Total Bilirubin 0.4mg/dL (0.0-1.2) Aspartate Amino Transf (AST/SGOT) 19U/L (0-50) Alanine Aminotransferase (ALT/SGPT) 13U/L (0-44) Alkaline Phosphatase 51U/L (25-150) Total Protein 5.8g/dL (6.4-8.4) Albumin 3.5g/dL (3.4-5.0) Discharge Medications Discharge Medications Atorvastatin Calcium (Atorvastatin Calcium) 10 Mg Tablet 10 MG PO HS Prescribed by: NICHOLE ALFORD DO Hydrochlorothiazide (Hydrochlorothiazide) 12.5 Mg Capsule 12.5 MG PO DAILY Prescribed by: NICHOLE ALFORD DO As needed Hydrocodone-Acetaminophen 5-325 mg (Hydrocodone-Acetaminophen 5-325 mg) 1 Each Tablet 1-2 TABLET PO Q4H PRN PRN For Moderate Pain Prescribed by: NICHOLE ALFORD DO Polyethylene Glycol 3350 (Miralax) 17 Gm Powd.pack 17 GM PO DAILY PRN PRN For Constipation Prescribed by: NICHOLE ALFORD DO Additional med instructions Please take atorvastatin 10 mg QD as recommended to you. Please start hydrochlorothiazide 12.5 mg QD for HTN. Follow up lab qork in 2 weeks prior to PCP follow up. You may follow up at [facility]. Followup Plan Discharge Diet: Low fat, Low Sodium, Heart Healthy Discharge Activity: Other (crutches for ambulation, non weight bearing of left LE) Patient Instructions Please follow up with ortho in 2 weeks Please follow up with PCP in 2 weeks BMP prior to f/u with PCP Nichole Alford DO Aug 14, 2016 21:01
--- NOTE | 2016-08-15 02:33 | OP ---
[address] [address] OPERATIVE REPORT PATIENT: STELLA REBOLLAR : 1960 MR#: [id number] ADMIT: 08/12/2016 JOB ID: [id number] DATE OF SURGERY: 08/13/2016 PREOPERATIVE DIAGNOSIS(ES): 1. Left comminuted tibial shaft fracture with extension into the plafond. 2. Left comminuted fibular shaft fracture. POSTOPERATIVE DIAGNOSIS(ES): 1. Left comminuted tibial shaft fracture with extension into the plafond. 2. Left comminuted fibular shaft fracture. PROCEDURE: 1. Open reduction internal fixation of left comminuted tibial shaft and articular fracture. 2. Open reduction internal fixation of left comminuted fibular shaft fracture. SURGEON: Alek Dyson DO. BOILER OPERATOR HELPER: BELLA Luu PA-C was necessary for help with retraction as well as reduction during the procedure and for primary closure at the conclusion of the case. BRIEF HISTORY: The patient is a 55-year-old male who sustained a comminuted tibia and fibular fracture when he stepped through a loose board within the floor. He immediately had significant pain and was unable to further ambulate and was transported via ambulance to the hospital. Upon presentation he had a comminuted distal shaft of the tibia fracture with extension in the metaphysis. There was also questionable extension of the articular surface and a CT was obtained. The patient also demonstrated a comminuted fibular fracture. Upon CT evaluation, it was noted that there were two fracture lines within the articular surface although nondisplaced. Decision was made to discuss with the patient, the risks, benefits and indications to proceed with open reduction internal fixation of left distal tibia and fibular fracture. He understood the risks including, but not limited to, neurovascular injury, tendon injury, infection, failure of fixation, stiffness, persistent pain which may require further intervention. The patient had all questions answered. Consent was signed and placed in chart. PROCEDURE IN DETAIL: The patient was brought to the operative suite and placed supine on the operating room table. Surgical time-out performed. Everyone in the room was in agreement. After appropriate anesthesia was obtained, a left upper thigh tourniquet was applied and left lower extremity was prepped and draped in a sterile fashion. Left lower extremity then exsanguinated and tourniquet inflated to 250 mmHg. The patient's fibula was approached first in order to establish length. A longitudinal incision was made along the subcutaneous border of the fibula. Dissection was carried down to the fibula distally and dissected with scissors proximally to take care to protect the branches of the cutaneous nerve. The fracture site was identified. There was comminution mainly posteriorly to the fibular shaft. Manual reduction was then performed and the shaft fracture spanned utilizing a eight hole 1/3 tubular plate. The plate was fixed with nonlocking screws both distally and proximal to the comminuted fracture segment for totals of three screws distally and three proximally. After the fibula was fixed, this re-established length, but there was still significant anterior and posterior translation of the distal tibia. An incision was made overlying the subcutaneous border medially of the tibia at the fracture site. The fracture butterfly fragment was identified. It was first reduced to the inferior segment and lagged with two 3.5 mm cortical screws. This was followed by lagging the superior shaft now to the butterfly fragment with an additional 3.5 mm lag screw. Excellent fixation was then achieved. An incision was made directly overlying the medial malleolus and a 12 hole distal tibia medial plate was then slid retrograde. The appropriate contour of the plate was determined. The plate was removed and then prebent and the plate re-slid back up retrograde. The position of the plate was verified under fluoroscopy. A nonlocking screw was placed just proximal to the most superior fracture line within the tibia to pull the plate to the medial cortex of the tibia. This was followed by application of additional nonlocking screws to the distal aspect of the incision, distal to the butterfly fragment. This again pulled the plate to the medial cortex of the tibia. Additional radiographs were then obtained. Multiple distal locking screws were utilized to transfix the medial malleolus fragment that was nondisplaced as well as additional fixation for the distal tibia fracture. Two additional locking screws were placed proximally within the shaft in a percutaneous fashion utilizing fluoroscopy. A final A to P screw was used first with blunt dissection down to the anterior cortex of the tibia. A guidewire was then placed, over drilled and a partially threaded 4.5 mm screw then advanced to apply an anterior to posterior compression to the nondisplaced plafond fracture. Multiple views of fluoroscopy were utilized to verify anatomic reduction, appropriate placement of the hardware and appropriate length of all screws. Copious irrigation was performed to all incisions. The deep fascia closed with 0-Vicryl, followed by 2-0 Vicryl for the subcutaneous tissues and go for the skin. The patient was then placed into a well-padded well-molded stirrup type splint. ESTIMATED BLOOD LOSS: Less than 25 cc. COMPLICATIONS: None. DISPOSITION: The patient tolerated the procedure well. Anesthesia was reversed. The patient was transferred back to recovery. IMPLANTS: A Synthes 8 hole, 1/3 tubular plate for the fibular shaft and a 12 hole Synthe[employer] medial distal tibia locking plate with one additional 4.5 mm partially threaded screw outside of the plate for A to P fixation of the plafond. POSTOPERATIVE PLAN: The patient will be admitted back to the floor and if he is able to tolerate his pain with p.o. medications and is able to maintain nonweightbearing status to the left lower extremity with crutches or walker, he can be discharged home the following day. He is to follow up in the office in two weeks. We will repeat x-rays at that time and then transition him into a boot at that time. He will be nonweightbearing for a minimum of 10 weeks.
== END 2016-08-14 15:30 | disposition home or self-care (01) | DRG 494 ==
LOC: SED 18:37 → OSC 20:24 → OBSVTOIN 20:24 → OSC 21:45
PROVIDERS: ADMIT Hospitalist; ATTEND Hospitalist
PROC: 0QSHXZZ Reposition Left Tibia, External Approach (ICD-10-PCS; 2016-08-12)
PROC: 0QSK04Z Reposition Left Fibula with Internal Fixation Device, Open Approach (ICD-10-PCS; 2016-08-13)
PROC: 0QSH04Z Reposition Left Tibia with Internal Fixation Device, Open Approach (ICD-10-PCS; principal; 2016-08-13 18:15)
DX: S82.52XA Displaced fracture of medial malleolus of left tibia, initial encounter for closed fracture (principal); S82.452A Displaced comminuted fracture of shaft of left fibula, initial encounter for closed fracture; W13.3XXA Fall through floor, initial encounter; I10 Essential (primary) hypertension; E78.5 Hyperlipidemia, unspecified; Y93.89 Activity, other specified; Y99.9 Unspecified external cause status; Y92.71 Barn as the place of occurrence of the external cause